=== PATIENT | female | born 1975 | race Caucasian/White ===

== ENCOUNTER → 2020-10-25 00:31 | Outpatient (CLI) | payer BC, SELFPAY ==
[2020-10-25 21:18] LABS: SARS-CoV-2 RNA PCR Negative
== END ==
PROVIDERS: PCP Family Medicine; Visit Provider Internal Medicine Gastroenterology
DX: Z01.812 Encounter for preprocedural laboratory examination (principal); Z20.822 Contact with and (suspected) exposure to COVID-19
CPT/HCPCS: C9803; U0003; U0005

== ENCOUNTER 2020-10-28 00:16 | Day surgery (SDC) | payer BC, SELFPAY ==
[2020-10-07 14:44] VITALS: BMI 30.8
[2020-10-28 07:52] VITALS: BP 159/99; PULSE 80; RESP 16; TEMP 37.1; O2SAT 98
[2020-10-28] MEDS: LACTATED RINGERS 1,000 ML 150 ML IV CONT (08:03)
--- NOTE | 2020-10-28 08:54 | WPDANESEPPF ---
Anes - Initial Pre Proc Eval Procedure: Operation Date: 10/28/20 09:00 Proposed Procedures p Screening Colonoscopy - Benito Wilder MD Date/Time: 10/28/20 08:54 Surgeon: Benito Wilder MD Pre Op Diagnosis: neoplasm screening Patient Data Age: 44 Gender: F Height: 5 ft 5 in Weight: 82.2 kg Last Vital Signs Temp 37.1 C 10/28/20 07:52 Pulse 80 10/28/20 07:52 Resp 16 10/28/20 07:52 BP 159/99 H 10/28/20 07:52 Pulse Ox 98 10/28/20 07:52 Allergies Allergy/AdvReac Type Severity Reaction Status Date / Time Sulfa (Sulfonamide Allergy Unknown Rash Verified 10/28/20 07:49 Antibiotics) Home Medications Medication Instructions Recorded Confirmed Type L norgest/E estradiol-E estrad 1 tablet PO DAILY 09/23/19 10/28/20 History 0.15 mg-30 mcg (84)/10 mcg(7) tabs,3mos levothyroxine 50 mcg tablet 50 mcg PO DAILY #90 tablet 06/08/20 10/28/20 Rx cetirizine 10 mg capsule 10 mg PO DAILY PRN 10/04/20 10/07/20 History Patient hx anesthesia problems: none Family hx anesthesia problems: none PMFSH Past Medical History Medical History Depression Hearing loss Hypothyroidism Seasonal allergies Surgical History Surgical History H/O laparoscopy Family History Family History Mother Family history of blood dyscrasia Carcinoma of colon Father Family history of coronary artery disease Other Asthma Depression Diabetes mellitus Family history of Alzheimer's disease Family history of alcoholism Family history of cardiovascular disease Family history of cataracts Family history of chronic obstructive pulmonary disease Family history of malignant neoplasm of male breast Family history of mental disorder Family history of thyroid disease Hypertension Social History Social History Smoking status: Former smoker Second hand tobacco smoke exposure: No Smoking end date: 09/09/99 Alcohol intake: current Living arrangements: with family Gender identity (if verbalized by the patient): Female Spiritual care concerns: No Anes - Eval Final PreProcedure Day of Procedure 10/28/20 08:54 Patient weight: obese Heart: regular rate and rhythm Lungs: clear to auscultation Airway: Mallampati scale class II Neurological: alert and oriented Last oral intake: >/= 8 hours ASA classification: II Emergent: no Anesthetic plan: proceed Anesthesia type and monitoring: general GIVS and standard monitoring Informed Consent: The patient's anesthetic plan and its attendant risks and benefits were discussed with the patient/family/POA. Questions were solicited and answers provided to the satisfaction of the patient/family/POA.
--- NOTE | 2020-10-28 09:31 | PM.HPGS ---
History of Present Illness History of Present Illness Consent: Risks, benefits, and alternatives have been discussed and questions answered. Patient agrees to proceed with procedure. Chief complaint: neoplasm screening Narrative: Chloé Spann is a 44 year old female here for first screening colonoscopy, mother had colon cancer Review of Systems Constitutional: Constitutional: Denies headache(s) and Denies weakness Eyes: Eyes: Denies blurry vision ENT: Reports Normal hearing present, Denies headache(s) and Denies neck pain Cardiovascular: Cardiovascular: Denies chest pain and Denies dyspnea Respiratory: Respiratory: Denies dyspnea Gastrointestinal: Gastrointestinal: Reports no additional gastrointestinal complaints Genitourinary: Genitourinary: Denies dysuria Musculoskeletal: Musculoskeletal: Denies neck pain Integumentary/Breasts: Skin/Breast: Denies dry skin Neurologic: Reports Normal hearing present, Denies headache(s) and Denies weakness Psychiatric: Psychiatric: Denies anxiety Endocrine: Endocrine: Denies change in body appearance Hematologic/Lymphatic: Hematologic/Lymphatic: Denies easy bleeding Allergic/Immunologic: Allergic/Immunologic: Denies urticaria PMFSH Past Medical History Medical History Depression Hearing loss Hypothyroidism Seasonal allergies Surgical History Surgical History H/O laparoscopy Family History Family History Mother Family history of blood dyscrasia Carcinoma of colon Father Family history of coronary artery disease Other Asthma Depression Diabetes mellitus Family history of Alzheimer's disease Family history of alcoholism Family history of cardiovascular disease Family history of cataracts Family history of chronic obstructive pulmonary disease Family history of malignant neoplasm of male breast Family history of mental disorder Family history of thyroid disease Hypertension Social History Social History Smoking status: Former smoker Second hand tobacco smoke exposure: No Smoking end date: 09/09/99 Alcohol intake: current Living arrangements: with family Gender identity (if verbalized by the patient): Female Spiritual care concerns: No Meds Home Medications and Allergies Home Medications Medication Instructions Recorded Confirmed Type L norgest/E estradiol-E estrad 1 tablet PO DAILY 09/23/19 10/28/20 History 0.15 mg-30 mcg (84)/10 mcg(7) tabs,3mos levothyroxine 50 mcg tablet 50 mcg PO DAILY #90 tablet 06/08/20 10/28/20 Rx cetirizine 10 mg capsule 10 mg PO DAILY PRN 10/04/20 10/07/20 History Allergies Allergy/AdvReac Type Severity Reaction Status Date / Time Sulfa (Sulfonamide Allergy Unknown Rash Verified 10/28/20 07:49 Antibiotics) Vital Signs Vital Signs - 24 hr 10/28/20 07:52 Temperature 98.7 F Pulse Rate 80 Respiratory Rate 16 Blood Pressure 159/99 H Pulse Oximetry 98 Exam Const: General: comfortable and no acute distress HENMT: General nose exam: Normal nares present Eyes: General: appearance normal, both eyes and all related structures Neck: Neck: no JVD Resp: Auscultation: clear to auscultation bilaterally Cardio: Rate: regular rate Rhythm: regular rhythm GI: Inspection: non-distended GI Palp: Yes Soft to palpation Skin: General skin exam: normal color Neuro: General: gait normal Speech: normal speech Extrem: General: normal to inspection Psych: Mental Status: mental status grossly normal Assessment and Plan Assessment and plan (1) Family history of colon cancer in mother: Code(s): Z80.0 - Family history of malignant neoplasm of digestive organs Status: Acute Assessment and Plan: proceed with colonoscopy
[2020-10-28 09:50] VITALS: BP 149/95; PULSE 79; RESP 22; O2SAT 99
[2020-10-28 10:00] VITALS: BP 159/98; PULSE 77; RESP 23; O2SAT 100
[2020-10-28 10:10] VITALS: BP 153/90; PULSE 60; RESP 17; O2SAT 99
== END 2020-10-28 10:25 | disposition home or self-care (01) ==
PROVIDERS: PCP Family Medicine; Visit Provider Internal Medicine Gastroenterology
PROC: 0DJD8ZZ Inspection of Lower Intestinal Tract, Via Natural or Artificial Opening Endoscopic (ICD-10-PCS; CPT 45378; principal; 2020-10-28 09:00)
DX: Z12.11 Encounter for screening for malignant neoplasm of colon (principal); Z80.0 Family history of malignant neoplasm of digestive organs; K57.30 Diverticulosis of large intestine without perforation or abscess without bleeding; K64.8 Other hemorrhoids; E03.9 Hypothyroidism, unspecified; H91.90 Unspecified hearing loss, unspecified ear; J30.2 Other seasonal allergic rhinitis; F32.9 Major depressive disorder, single episode, unspecified; Z87.891 Personal history of nicotine dependence
CPT/HCPCS: 45378; J2704; J7120

== ENCOUNTER → 2021-05-18 10:57 | Outpatient (REF) | payer BC, SELFPAY | LOC: ANHLAB 10:57 | PROVIDERS: PCP Nurse Practitioner Family; Visit Provider Nurse Practitioner | DX: D17.1 Benign lipomatous neoplasm of skin and subcutaneous tissue of trunk (principal) | CPT/HCPCS: 88304 ==

== ENCOUNTER → 2023-10-25 10:02 | Outpatient (CLI) | payer BC, SELFPAY ==
--- NOTE | ~2023-10-25 | XR_ITS ---
AP and lateral views of the left hip Clinical history: Pain Findings: No acute fracture or dislocation is seen. Osseous alignment is anatomic. The left hip joint is preserved. Soft tissues are unremarkable. Impression: No significant abnormality is seen. Reviewed, dictated and finalized at [facility]. [place] Impression: No significant abnormality is seen.
== END ==
PROVIDERS: PCP Nurse Practitioner Family; Visit Provider Nurse Practitioner Family
DX: M25.552 Pain in left hip (principal)
CPT/HCPCS: 73502

== ENCOUNTER 2023-12-12 12:30 | Outpatient (RCR) | payer BC, SELFPAY ==
--- NOTE | 2023-11-04 13:25 | PTOPEVAL1 ---
Assessment and note entered by Allan Mario, PT, DPT Evaluation Information Assessment Status Evaluation Diagnosis L hip pain Onset 5 months Subjective Information Pt states she is having L sided hip pain, she has intermittent L sided plantar fasciitis as well. She states she has been noticing maximino hip pain L>R. She states the pain is annoying and prevents her from sleeping on her L side. She states she has difficultly sitting for prolonged periods of time or occasionally stepping with the L. Reported Pain Level Pain Score 2: Self Report Assessment PT Clinical Summary Chloé presents to therapy today for her initial evaluation with a diagnosis of L hip pain. Today she demonstrates good LE ROM and strength grossly throughout. She demonstrates a shortening of the one and two joint hip flexor with gritty soft tissue palpable throughout the quad muscle belly and ITB. She demonstrates decreased body mechanics during a functional squat. Skilled therapy services are indicated to decreased pain, improve mobility and body mechanics, and to return to PLOF . Plan of Care Interventions Electrical Stimulation,Gait Training,Hot Pack/Cold Pack,Manual Therapy,Neuro Re-education,Patient/ Caregiver Educati,Therapeutic Activities, Therapeutic Exercise PT Services Indicated Yes Treatment Frequency and 1x/wk for 6 visits Duration These treatments will address the objective and functional deficits as defined above. The patient will be advanced safely and appropriately in order for the patient to progress towards his/her prior level of function. Additional exercises will be introduced and as well as a comprehensive home exercise program upon discharge, if needed, ?to ensure carryover of functional gains achieved in the clinic. This treatment plan has been reviewed and agreement upon by the patient.
--- NOTE | 2023-11-04 13:25 | OPREHPOC ---
Outpatient Therapy Plan of Care This is a Multidisciplinary Plan of Care that may contain components documented by all disciplines (PT, OT, and ST.) PT Problem 1 PT Problem #1 Knowledge Deficit PT Goal 1 Goal Pt to be IND with issued HEP Target Visit 6 PT Problem 2 PT Problem #2 Pain PT Goal 1 Goal Pt to report hip pain no greater 3/10 in the last week. Target Visit 6 PT Goal 2 Goal Pt to report 75% improvement in overall symptoms. Target Visit 6 PT Problem 3 PT Problem #3 Impaired Range of Motion PT Goal 1 Goal Pt to improve 2 joint hip flexor ROM to WNL. Target Visit 6 PT Problem 4 PT Problem #4 Impaired Functional Mobil PT Goal 1 Goal Pt to demonstrate a functional lift and carry with 20lb without compensations. Target Visit 6 PT Goal 2 Goal Pt to improve LEFS score from 62/80 to 72/80. Target Visit 6
--- NOTE | 2023-11-13 12:54 | PCPTNOTE ---
Patient called & cancelled scheduled appointment this date due to having to watch her sick grandchild.
--- NOTE | 2023-12-12 14:25 | PTOPPROG ---
Assessment and note entered by Allan Mario, PT, DPT Evaluation Information Assessment Status Progress Diagnosis L hip pain Onset 5 months Subjective Information Pt states her hip was doing well, and then she went of a road trip and is now a bit aggravated again. She states she got back saturday is and it getting a little bit better since she has been back and resting. She states it is a mild ache. Assessment PT Clinical Summary Chloé presents to therapy today for her progress report following 4 visits of skilled therapy to treat her diagnosis of L hip pain. Today she demonstrates good LE ROM and strength grossly throughout. She demonstrates improved muscle length and smoothness to palpation of her ITB and hip flexor. She is progressing well towards her therapy goals. She elected to continue her HEP IND and will follow up if needed in the next 2-3 weeks. Plan of Care Interventions Electrical Stimulation,Gait Training,Hot Pack/Cold Pack,Manual Therapy,Neuro Re-education,Patient/ Caregiver Educati,Therapeutic Activities, Therapeutic Exercise PT Services Indicated Yes Treatment Frequency and follow up if needed Duration These treatments will address the objective and functional deficits as defined above. The patient will be advanced safely and appropriately in order for the patient to progress towards his/her prior level of function. Additional exercises will be introduced and as well as a comprehensive home exercise program upon discharge, if needed, ?to ensure carryover of functional gains achieved in the clinic. This treatment plan has been reviewed and agreement upon by the patient.
--- NOTE | 2024-01-28 07:56 | OPREHPOC ---
Outpatient Therapy Plan of Care This is a Multidisciplinary Plan of Care that may contain components documented by all disciplines (PT, OT, and ST.) PT Problem 1 PT Problem #1 Knowledge Deficit PT Goal 1 Goal Pt to be IND with issued HEP Target Visit 6 Progress Met Comment 12/12/23: met PT Problem 2 PT Problem #2 Pain PT Goal 1 Goal Pt to report hip pain no greater 3/10 in the last week. Target Visit 6 Progress Not Met Comment 12/12/23: not met PT Goal 2 Goal Pt to report 75% improvement in overall symptoms. Target Visit 6 Progress Not Met Comment 12/12/23: progressing, at least 50% improvement PT Problem 3 PT Problem #3 Impaired Range of Motion PT Goal 1 Goal Pt to improve 2 joint hip flexor ROM to WNL. Target Visit 6 Progress Met Comment met PT Problem 4 PT Problem #4 Impaired Functional Mobil PT Goal 1 Goal Pt to demonstrate a functional lift and carry with 20lb without compensations. Target Visit 6 Progress Met Comment 12/12/23: met PT Goal 2 Goal Pt to improve LEFS score from 62/80 to 72/80. Target Visit 6
--- NOTE | 2024-01-28 07:56 | PTOPDC ---
Assessment and note entered by Andrew Mares, PT Evaluation Information Assessment Status Discharge - Pt Not Present Diagnosis L hip pain Onset 5 months Subjective Information Pt states her hip was doing well, and then she went of a road trip and is now a bit aggravated again. She states she got back Saturday is and it getting a little bit better since she has been back and resting. She states it is a mild ache. Assessment PT Clinical Summary Patient was present for 3 treatment session the last of which occurred on November 24. Patient has not been in contact with clinic and will be discharged at this time to [facility]. Please refer to last treatment note for progress status if needed. Plan of Care PT Services Indicated D/C to HEP
== END 2024-01-28 09:19 | disposition home or self-care (01) ==
LOC: ANHGOSHPT 12:30
PROVIDERS: PCP Nurse Practitioner Family; Visit Provider Nurse Practitioner Family
DX: M25.552 Pain in left hip (principal)
CPT/HCPCS: 97110; 97140; 97161; 97530